=== PATIENT | male | born 1950 | race Caucasian/White ===

== ENCOUNTER 2019-04-23 11:56 | Emergency (ER) | payer OTHER, MEDICARE ==
[~2019-04-23] VITALS: Ht 188 cm; Wt 86.2 kg
[2019-04-23 12:13] LABS: ABSOLUTE NEUTROPHILS 11.4 thou/uL (1.4-8.2); BASOPHILS 0.6 % (0.0-2.0); EOSINOPHILS 0.2 % (0.0-3.0); HEMATOCRIT 42.9 % (42.0-52.0); HEMOGLOBIN 14.7 gm/dL (14.0-18.0); LYMPHOCYTES 6.4 % (24.0-44.0); MCH 28.7 pg (26.0-34.0); MCHC 34.4 g/dL (28.0-37.0); MCV 83.4 fL (80.0-100.0); MONOCYTES 8.5 % (1.0-8.0); PLATELET COUNT 219 thou/uL (150-400); POLYS 84.3 % (36.0-66.0); RBC 5.14 mil/uL (4.50-6.00); RDW 17.4 % (10.5-14.5); WBC 13.5 thou/uL (4.0-11.0)
[2019-04-23 12:29] LABS: CALCIUM 9.9 mg/dL (8.5-10.1); CREATININE 1.7 mg/dL (0.7-1.3); POTASSIUM 3.2 mmol/L (3.5-5.1)
[2019-04-23 12:33] LABS: ALBUMIN 4.2 g/dL (3.4-5.0); TOTAL BILIRUBIN 0.9 mg/dL (<0.1-1.0); TOTAL PROTEIN 8.7 g/dL (6.4-8.2)
[2019-04-23 15:08] LABS: INR 1.1; PROTIME 11.4 Seconds (9.3-11.4)
[2019-04-23 17:08] VITALS: BP 134/97
--- NOTE | 2019-04-23 17:10 | 2DMMODE ---
[facility] [place] [address] 2 D/M-MODE ECHOCARDIOGRAM Name: SHIRLENEALEXANDRA [facility]: [facility] [id number] ������������� Admission: 04/23/19 ������������� Attend Phys: Discharge: ��� ������������� ��� Date of : 46 Date of Service: 04/23/19 1710 �� Report #: [id number] �������� ��������������������������������������������[id number] THIS REPORT FOR: //name// APPROVED REPORT Study performed: 04/23/2019 14:51:03 EXAM: Comprehensive 2D, Doppler, and color-flow Echocardiogram Patient Location: ER Room #: 7 Status: routine BSA: 2.13 HR: 71 bpm BP: 85/43 mmHg Rhythm: NSR Other Information Study Quality: Good Indications Non STEMI Dyspnea Elevated Troponin Hypertension/HDD 2D Dimensions RVDd: 26.54 mm IVSd: 11.40 (7-11mm) LVOT Diam: 24.06 (18-24mm) LVDd: 59.15 mm PWd: 10.15 (7-11mm) Ascending Ao: 32.73 (22-36mm) LVDs: 42.95 (25-40mm) Aortic Root: 32.54 mm IVC: 13.00 mm Volumes Left Atrial Volume (Systole) Single Plane 4CH: 33.82 mL Single Plane 2CH: 63.56 mL LA ESV Index: 28.00 mL/m2 Aortic Valve AoV Peak Jg.: 1.21 m/s AO Peak Gr.: 5.81 mmHg LVOT Max P.96 mmHg LVOT Max V: 1.11 m/s SESAR Vmax: 4.20 cm2 Mitral Valve [facility] [address] [address] 2 D/M-MODE ECHOCARDIOGRAM Name: ALEXANDRA GARBER Room #: REG ER ChazChaz#: [id number] ������������� Admission: 04/23/19 ������������� Attend Phys: Discharge: ��� ������������� ��� Date of : 46 Date of Service: 04/23/19 1710 �� Report #: [id number] �������� ��������������������������������������������[id number] E/A Ratio: 0.6 MV Decel. Time: 337.52 ms MV E Max Jg.: 0.42 m/s MV A Jg.: 0.73 m/s MV PHT: 97.88 ms IVRT: 152.25 ms Pulmonary Valve PV Peak Jg.: 0.85 m/s PV Peak Gr.: 2.91 mmHg Pulmonary Vein P Vein S: 0.48 m/s P Vein A: 0.31 m/s P Vein D: 0.23 m/s P Vein A Dur.: 106.1 msec P Vein S/D Ratio: 2.09 Left Ventricle Left ventricle is dilated. There is hypokinesis in the apical wall. There is normal left ventricular wall thickness. Left ventricular systolic function is mildly decreased. LVEF is 40=45% Grade I - abnormal relaxation pattern. Right Ventricle The right ventricle is normal size. The right ventricular systolic function is normal. Atria The left atrium size is normal. The right atrium size is normal. Aortic Valve The aortic valve is normal in structure. Mild aortic regurgitation. There is no aortic valvular stenosis. Mitral Valve The mitral valve is normal in structure. There is no mitral valve regurgitation noted. No evidence of mitral valve stenosis. Tricuspid Valve The tricuspid valve is normal in structure. There is no tricuspid valve regurgitation noted. Pulmonic Valve The pulmonary valve is normal in structure. Trace pulmonic regurgitation. Great Vessels [facility] [address] [place] [address] 2 D/M-MODE ECHOCARDIOGRAM Name: ALEXANDRA GARBER Room #: REG [facility]#: [id number] ������������� Admission: 04/23/19 ������������� Attend Phys: Discharge: ��� ������������� ��� Date of : 46 Date of Service: 04/23/19 1710 �� Report #: [id number] �������� ��������������������������������������������[id number] The aortic root is normal in size. IVC is normal in size and collapses >50% with inspiration. Pericardium There is no pericardial effusion. <Conclusion> Left ventricle is dilated. There is hypokinesis in the apical wall. Left ventricular systolic function is mildly decreased. Grade I - abnormal relaxation pattern. The right ventricle is normal size. The left atrium size is normal. Mild aortic regurgitation. There is no mitral valve regurgitation noted. The aortic root is normal in size. There is no pericardial effusion. LVEF is 40=45% ��������������������������������������������� <ELECTRONICALLY SIGNED> ���������������������������������������� By: Danny Ramos MD, [facility] ��������������������������������������������� 04/23/191709 09 09 Danny Ramos MD, [facility] /INF
--- NOTE | 2019-04-24 08:23 | EKG ---
[place] [address] [facility] [employer] [place] [address] ELECTROCARDIOGRAM REPORT Name: SHIRLENEALEXANDRA BARKER [facility] #: [facility]P [facility] [id number] ������������������ Admission: 04/23/19 ������������������ Attend Phys: Discharge: 04/23/19 ������������������ Date of : 46 Report #: [id number] ����������������������������������������������������������������� [id number] THIS REPORT FOR: //name// [facility] ED Test Date: 2019-04-23 Test Time: 12:41:12 Pat Name: ALEXANDRA GARBER Department: Room: Gender: M [employer] Teacher: [facility] : 1950 Requested By: Griselda Campos Order Number: [id number] MD: Davide Berry Measurements Intervals [place] Rate: 83 P: 20 UT: 194 QRS: -10 QRSD: 158 T: 185 QT: 470 QTc: 553 Interpretive Statements Sinus rhythm Atrial premature complex Left bundle branch block Baseline wander in lead(s) I,III,aVL No previous ECG available for comparison Electronically Signed On 04-24-2019 8:23:32 CDT by Davide Berry [email or web address] ��������������������������������������������� <ELECTRONICALLY SIGNED> ���������������������������������������� By: Davide Berry MD, [facility] ��������������������������������������������� 04/24/19 0823 1241 1241 Davide Berry MD, [facility] /EPI
== END 2019-04-23 17:00 | disposition short-term general hospital (02) ==
LOC: ER 11:56
PROVIDERS: Emergency Medicine; Physician Assistant
DX: I21.4 Non-ST elevation (NSTEMI) myocardial infarction (principal); N17.9 Acute kidney failure, unspecified; E87.6 Hypokalemia; R11.2 Nausea with vomiting, unspecified; R06.02 Shortness of breath; I10 Essential (primary) hypertension; Z85.46 Personal history of malignant neoplasm of prostate

== ENCOUNTER → 2019-07-02 | Outpatient (CLI) | payer OTHER ==
--- NOTE | 2019-07-02 11:35 | 2DMMODE ---
[facility] [place] [address] 2 D/M-MODE ECHOCARDIOGRAM Name: ALEXANDRA GARBER Room #: REG [facility]#: [id number] Admission: 07/02/19 Attend Phys: Gavin Calero MD Discharge: Date of : 46 Report #: [id number] THIS REPORT FOR: //name// APPROVED REPORT Study performed: 07/02/2019 10:11:09 EXAM: Comprehensive 2D, Doppler, and color-flow Echocardiogram Patient Location: Out-Patient Status: routine BSA: 2.13 HR: 56 bpm BP: 174/100 mmHg Rhythm: Irregular Bradycardia Other Information Study Quality: Good Indications CAD 2D Dimensions RVDd: 34.30 mm IVSd: 13.22 (7-11mm) LVOT Diam: 22.59 (18-24mm) LVDd: 50.24 mm PWd: 14.39 (7-11mm) Ascending Ao: 40.33 (22-36mm) LVDs: 39.99 (25-40mm) Aortic Root: 35.00 mm IVC: 15.00 mm Volumes Left Atrial Volume (Systole) Single Plane 4CH: 32.62 mL Single Plane 2CH: 57.61 mL LA ESV Index: 27.00 mL/m2 Aortic Valve AoV Peak Jg.: 1.92 m/s AO Peak Gr.: 14.71 mmHg AI Vmax: 4.45 m/s AI [place]: 1.16 m/s2 AI PHT: 1109.33 ms Mitral Valve MV E Max Jg.: 0.73 m/s [facility] [address] [place] [address] 2 D/M-MODE ECHOCARDIOGRAM Name: ALEXANDRA GARBER Room #: REG [facility]#: [id number] Admission: 07/02/19 Attend Phys: Gavin Calero MD Discharge: Date of : 46 Report #: [id number] Pulmonary Valve PV Peak Jg.: 1.35 m/s PV Peak Gr.: 7.24 mmHg Pulmonary Vein P Vein S: 0.61 m/s P Vein A: 0.29 m/s P Vein D: 0.32 m/s P Vein A Dur.: 117.6 msec P Vein S/D Ratio: 1.91 Tricuspid Valve TR Peak Jg.: 1.92 m/s RAP Estimate: 5.00 mmHg TR Peak Gr.: 14.80 mmHg PA Pressure: 20.00 mmHg Left Ventricle Left ventricle is at the upper limits of normal. Regional wall motion abnormalities are noted. Mild to moderate basal septal hypertrophy is present. Left ventricular systolic function is low normal. LVEF is 50%. Mild diastolic dysfunction is present (impaired relaxation pattern). Right Ventricle The right ventricle is normal size. The right ventricular systolic function is normal. Atria The left atrium size is normal. The right atrium size is normal. Aortic Valve Aortic valve leaflets are thickened. Aortic valve is mildly calcified. Mild aortic regurgitation. There is no aortic valvular stenosis. Mitral Valve The mitral valve is normal in structure. Mild mitral regurgitation. No evidence of mitral valve stenosis. Tricuspid Valve The tricuspid valve is normal in structure. Trace to mild tricuspid regurgitation. Estimated PAP is 20mmHg. Pulmonic Valve The pulmonary valve is normal in structure. Trace pulmonic regurgitation. [employer] [facility] [place] [address] 2 D/M-MODE ECHOCARDIOGRAM Name: ALEXANDRA GARBER Room #: REG [facility].#: [id number] Admission: 07/02/19 Attend Phys: Gavin Calero MD Discharge: Date of : 46 Report #: [id number] The aortic root is normal in size. The ascending aorta is mildly dilated at 4.0cm. IVC is normal in size and collapses >50% with inspiration. Pericardium There is no pericardial effusion. <Conclusion> Left ventricle is at the upper limits of normal. LVEF is 50%. Aortic valve leaflets are thickened. Aortic valve is mildly calcified. Mild aortic regurgitation. The mitral valve is normal in structure. Mild mitral regurgitation. The tricuspid valve is normal in structure. Trace to mild tricuspid regurgitation. Estimated PAP is 20mmHg. The pulmonary valve is normal in structure. Trace pulmonic regurgitation. The ascending aorta is mildly dilated at 4.0cm. There is no pericardial effusion. <ELECTRONICALLY SIGNED> By: Robbie Wang MD 07/02/19 1135 1135 1135 Robbie Wang MD /INF
== END ==
LOC: CV 10:06
DX: I08.3 Combined rheumatic disorders of mitral, aortic and tricuspid valves (principal); I25.10 Atherosclerotic heart disease of native coronary artery without angina pectoris

== ENCOUNTER → 2020-02-09 | Outpatient (CLI) | payer OTHER, MEDICARE | LOC: LAB 14:12 → RAD 14:46 | PROVIDERS: ATTEND Nurse Practitioner | DX: M51.36 Other intervertebral disc degeneration, lumbar region (principal); M43.16 Spondylolisthesis, lumbar region; R05 Cough; R06.02 Shortness of breath; M54.5 Low back pain; Z20.828 Contact with and (suspected) exposure to other viral communicable diseases ==

== ENCOUNTER → 2020-02-25 | Outpatient (CLI) | payer OTHER, MEDICARE | LOC: MRI 14:12 | PROVIDERS: ATTEND Nurse Practitioner | DX: M48.07 Spinal stenosis, lumbosacral region (principal); M51.16 Intervertebral disc disorders with radiculopathy, lumbar region; M51.86 Other intervertebral disc disorders, lumbar region; M47.26 Other spondylosis with radiculopathy, lumbar region ==